=== PATIENT | female | born 1995 | race African-American/Black ===

== ENCOUNTER 2022-05-21 05:42 | Inpatient (IN) ==
--- NOTE | 2022-05-03 16:19 | History & Physical Report ---
Date of Service May 03, 2022 Assessment & Plan (1) Previous delivery affecting , antepartum: Plan: 26 yo presents for preop for planned repeat CS at 39 wks VSS +FHT on US Discussed indications, risks, benefits, alternatives with risks including infection, bleeding, injury to adjacent structures (bowel, bladder, ureters, blood vessels, nerves, baby), possible need for blood transfusion and/or life saving hysterectomy, VTE. Consent reviewed in detail w/ pt and signed after all questions answered to her satisfaction. Will plan to try to excise keloid of CS scar, aware may keloid again History of Present Illness Chief Complaint: Preop Primary Care Provider: NO PCP 26 yo at 36 3/7 wga presents for preop for planned repeat CS on 05/21 at 39 wks. +FM; denies regular ctx, LOF, VB. Had growth US today for poor maternal wt gain and was aga PNI: CSx1 Poor maternal weight gain Past [employer] Hx: G1 2020 CS in john G2 current Denies hx STIs 09/2021 neg cotest, no hx abnl Allergies Allergy/AdvReac Type Severity Reaction Status Date / Time No Known Allergies Allergy Verified 05/03/22 15:37 Patient History Medical History Tuberculosis as child Varicella vaccination Surgical History History of delivery Family History Denies family history of Ovarian cancer Prostate cancer Myocardial infarction Breast cancer Colorectal cancer Social History Smoking Status: Never smoker Second Hand Exposure: No; Hx Alcohol Use: No Hx Substance Use: No Preferred Language: Citizen Of [place] Communication Ability: Effective Visual Impairment: No Limitations Hearing Ability: Normal Cage Operator Required: No marital status: marital status details: Jesus Vincent (39) [phone] Current Living Situation: Spouse and Family Current Living Situation Comment: lives with spouse. child, no pets current occupational status: unemployed How many Children do You have: 1 Feels Safe at Home: Yes Childhood Exposure to Second-Hand Smoke: No caffeine: Yes during the past year weight has: increased > 10 lbs Physical Activity Frequency: Does not Exercise Seatbelt Use: always Sunscreen Use: No Assistive Devices: None Physical Exam Constitutional: WD/WN, vitals as above Respiratory: normal respiratory effort, lungs clear to auscultation Cardiovascular: RRR, no murmur, no edema Genitourinary: OB Exam Abdomen: + heart tones (+US) and + vertex Results & Data ([facility]) Laboratory Results OB Labs: Blood Type AB Positive 10/27/21 Antibody Screen NEGATIVE 10/27/21 Hemoglobin 10.3 g/dl (12.0-16.0) L 03/17/22 Hematocrit 31.0 % (34.1-44.9) L 03/17/22 Mean Corpuscular Volume 85.5 fL (80-100) 10/27/21 Platelet Count 317 K/uL (130-400) 10/27/21 Rubella IgG Antibody Immune (Immune) 10/27/21 Rapid Plasma Reagin Nonreactive (Nonreactive) 10/27/21 Hepatitis B Surface Antigen. NON-REACTIVE (NON-REACTIVE) 10/27/21 Hepatitis C Antibody (EIA) NON-REACTIVE (NON-REACTIVE) 10/27/21 HIV (1&2) Ag and Ab Confirmation NON-REACTIVE (NON-REACTIVE) 10/27/21 Glucose 1 Hour 50 gm Load 94 mg/dl (70-130) 03/17/22 OB Optional Labs: Chlamydia trachomatis RNA NOT DETECTED (NOT DETECTED) 10/27/21 Neisseria gonorrhoeae RNA NOT DETECTED (NOT DETECTED) 10/27/21 Diagnostic Findings 05/03 EFW 39%, post plac Coding Level of Care Code None Diagnoses Previous delivery affecting , antepartum O34.219
--- NOTE | 2022-05-18 13:20 | Anesthesiology Consultation ---
Date of Service May 18, 2022 Assessment & Plan (1) Encounter for pre-operative examination: COVID screening: Per assessment on 05/18: No known COVID-19 positive contacts or current COVID-19 related symptoms. Travel screen negative. Patient vaccinated. At surgeon discretion if preop Covid testing being done. Chart Review Chart Review: Acceptable Risk for Surgery Consults Requested none ASA ASA2 Proposed Anesthesia Anesthesia Type: Spinal Risk / Benefits Reviewed With: PT / POA / Parent / Guardian, Accepts Plan and Informed Consent Obtained History Surgery Operation Date: 05/21/22 07:30 Proposed Procedures p Section (Delivery of Baby through Abdominal Incision) - Kathia Badillo MD Height/Weight Height: 5 ft 2 in Weight: 65.045 kg Allergies Allergy/AdvReac Type Severity Reaction Status Date / Time No Known Allergies Allergy Verified 05/18/22 12:28 Medications Home Medications Medication Instructions Recorded Confirmed Last Taken prenat.vits,lee,[id number]-[id number] 1 tab PO QAM 05/18/22 05/18/22 Unknown Active Medications Generic Name Dose Route Start Last Admin Trade Name Freq PRN Reason Stop Dose Admin Cefazolin Sodium 2,000 mg/ 15 mls @ 3.75 mls/min 05/21/22 06:00 05/21/22 07:41 Syringe IV 05/21/22 14:00 3.75 mls/min PREOP SWAPNA Administration Past Medical History Medical History Group B streptococcal infection during Recently tested 05/2022 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, no issues since Vaginal bleeding during In first trimester, told it was a hematoma > bleeding resolved Exercise / Class Metabolic Activity II 4-5 Yardwork/Stairs/Walk up hill Past Family History Family History Other No family history of adverse response to anesthesia Denies family history of Ovarian cancer Prostate cancer Myocardial infarction Breast cancer Colorectal cancer Past Surgical History Surgical History History of delivery Past Anesthesia History No Hx of Anesthesia Complications and No Family Hx of Anesthesia Complications History of PONV No Hx of PONV and No Hx of Motion Sickness Social History Smoking Status: Never smoker Do You Dip or Chew Tobacco: No Hx Alcohol Use: No Hx Substance Use: No Physical Exam Vital Signs Last Vital Signs Temp 36.6 C 05/21/22 06:59 Pulse 81 05/21/22 09:05 Resp 16 05/21/22 06:23 BP 93/55 L 05/21/22 09:05 Pulse Ox 100 05/21/22 09:05 ENMT Mouth: no dentition abnormality Thyromental Distance: > or= 3.5 Finger Breadths Mallampati Class: II Neck normal visual inspection Respiratory normal respiratory effort Auscultation: lungs clear to auscultation bilaterally Cardiovascular Rate/Rhythm: regular rate and regular rhythm Psychiatric Orientation: alert Testing Laboratory Results 05/21/22 05:57 Blood Type AB Positive 05/21/22 05:57 Antibody Screen NEGATIVE 05/21/22 05:57
[2022-05-21] MEDS ORDERED: ceFAZolin 2,000 MG in SYRINGE 0 ML IV SCH (06:00)
[2022-05-21] MEDS ORDERED: LACTATED RINGER'S 1,000 ML IV ONE (06:00)
[2022-05-21] MEDS ORDERED: LACTATED RINGER'S 1,000 ML IV SCH ×2 (06:00→09:22)
[2022-05-21] MEDS ORDERED: ceFAZolin 2000MG 2,000 MG/15 ML SYR IV SCH (06:00)
[2022-05-21] MEDS ORDERED: CITRIC ACID/SODIUM CITRATE 15 ML UDC PO SCH (06:00)
[2022-05-21 06:33] LABS: Basophils # (auto) 0.01 K/uL (0-0.2); Basophils % (auto) 0.1 %; Eosinophils # (auto) 0.04 K/uL (0-0.50); Eosinophils % (auto) 0.6 %; Hematocrit (blood only) 31.5 % (34.1-44.9); Hemoglobin 10.7 g/dl (12.0-16.0); Immature Granulocytes # (auto) 0.02 K/uL (0.00-0.02); Immature Granulocytes % (auto) 0.3 %; Lymphocytes # (auto) 2.27 K/uL (1.2-3.4); Lymphocytes % (auto) 33.1 %; Mean Corpuscular Hemoglobin 29.3 pg (25.0-34.0); Mean Corpuscular Volume 86.3 fL (80.0-100.0); Mean Platelet Volume 10.2 fL (9.4-12.3); Monocytes # (auto) 0.73 K/uL (0.24-0.82); Monocytes % (auto) 10.6 %; Neutrophils # (auto) 3.79 K/uL (1.4-6.5); Neutrophils % (auto) 55.3 %; Platelet Count 245 K/uL (130-400); RDW Coefficient of Variation 12.9 % (11.5-14.5); RDW Standard Deviation 40.4 fL (36.4-46.3); Red Blood Count 3.65 M/uL (3.93-5.22); White Blood Count 6.86 K/ul (4.8-10.8)
--- NOTE | 2022-05-21 07:19 | History & Physical Bridge Note ---
Date of Service May 21, 2022 History & Physical Bridge Note I have examined the patient, reviewed the History & Physical and in the interval since the performance of the History & Physical I have noted the following changes of clinical significance: no changes noted
[2022-05-21] MEDS ORDERED: MoRPHine SULFATE PF 1 MG/ML 10 ML AMP/VIAL ONE (07:42)
[2022-05-21] MEDS ORDERED: OXYTOCIN 10 UNITS/ML 10ML VIAL ONE (08:43)
[2022-05-21] MEDS ORDERED: KETOROLAC 30 MG/ML VIAL ONE (08:43)
[2022-05-21] MEDS ORDERED: PHENYLEPHRINE 100MCG/ML 5ML SYR ONE (08:43)
[2022-05-21] MEDS ORDERED: ONDANSETRON INJ 2 MG/ML 2 ML VIAL ONE (08:43)
--- NOTE | 2022-05-21 09:07 | Operative Report ---
PG Post Operative Report Pre & Post Diagnosis Operation Date: 05/21/22 07:30 Pre-Op Diagnosis: Previous delivery affecting , antepartum, planned repeat CS at 39 wks Post-Op Diagnosis: Previous delivery affecting , antepartum, planned repeat CS at 39 wks I identified the patient and participated in the time-out.: Yes Procedure Operation Date: 05/21/22 07:30 Actual Procedures p Repeat Low Transverse Section (Delivery of Baby through Abdominal Incision) Live female child at 0819(Bilateral) - Kathia Badillo MD Surgeon Kathia Badillo MD Molecular Biologist MD Priscila Estimated Blood Loss 600 (ml) Findings Consistent with Post-Op Diagnosis Mild rectus adhesions. Normal appearing uterus with slightly thinner lower uterine segment but otherwise wnl. Bilateral fallopian tubes and ovaries wnl. Viable female with APGARs of 9 and 9 at 1 and 5 minutes, respectively. Fluids 1500cc crystalloid, 400cc clear urine by jones catheter Specimens Placenta hold, cord blood Drains Jones draining clear urine Anesthesia Type Spinal Complications none Disposition Accompanied Patient To Recovery: Yes Disposition: L&D Indications 26 yo at 39 wga presented for planned repeat . Description of Procedure The patient was taken to the operating room after consents were ensured. The patient was properly identified. Spinal anesthesia was obtained without difficulty. The patient was placed in a dorsal supine position with left lateral tilt, then prepped and draped in normal sterile fashion. Surgical time out was performed. Antibiotics were given for prophylaxis. Anesthesia was tested to ensure adequate surgical levels. Pfannenstiel skin incision was performed with the knife and carried down to the underlying fascia after excising keloid per pt request. The fascia was then nicked in the midline and extended laterally with pickups and Fitzpatrick scissors. Superior portion of the fascia was grasped with Kochers x2 and elevated off the underlying rectus muscles using blunt and sharp dissection. Inferior portion of the fascia was then grasped with Cyndi clamps x2 and also elevated off the underlying muscles with blunt dissection. Midline was identified with mild rectus adhesions. The peritoneum was then entered sharply and extended to provide adequate room for delivery of baby. A hand was inserted into the abdomen, uterus was noted to be clear of adhesions. Bladder blade was inserted, bladder flap was created in the usual fashion. A low transverse uterine incision was made in the uterus and extended bluntly in a superior to inferior fashion. Amniotomy was made with clear fluid at the time of rupture. head was grasped and elevated through the hysterotomy in an atraumatic fashion. The baby delivered in MEREDITH position, no nuchal cord. Remainder of the body delivered without incident. Nose and mouth were bulb suctioned on the surgical field. The cord was double clamped and cut, baby was handed off to awaiting pediatrics staff. Cord segment and blood were obtained. Placenta was then expressed from the uterus. The uterus was exteriorized. Several passes were made inside the uterus to remove the remaining membranes. Attention was then turned to the hysterotomy, which was then closed with a running locked suture of 0 Vicryl on a CTX needle. An imbricating layer was then performed using 0-Monocryl. There was noted to be good hemostasis. The posterior cul-de-sac was then inspected and cleaned of clot and debris. The hysterotomy was again inspected and noted to be hemostatic. The uterus was returned to the abdomen. The right and left pericolic gutters were cleaned of all clot and debris. The hysterotomy was again noted to be hemostatic. Space of Retzius was noted to be hemostatic. Benitez was applied to the hysterotomy for additional hemostasis. Rectus was inspected and no active bleeding was noted. Benitez was applied to the rectus due to having to take down the rectus adhesions. The fascia was then closed with a running suture of 0 Vicryl on a CT1 needle. Subcutaneous tissue was copiously irrigated and noted to be hemostatic. Subcutaneous tissue was re-approximated using 2-0 plain gut. The skin was then closed with a running suture of 3-0 Monocryl in a subcuticular fashion. At termination of the procedure, fundal pressure was applied and a moderate amount of lochia was expressed. Pressure dressing was applied to the patient. She tolerated the procedure well. All sponge, needle, instrument counts were correct x 2. I attest to the content of the Intraoperative Record and any orders documented therein. Any exceptions are noted below. OB Procedure Charges 47482
[2022-05-21] MEDS ORDERED: NALOXONE HCL 0.4 MG/1 ML VIAL/CARP IV PRN (09:10)
[2022-05-21] MEDS ORDERED: MoRPHine SULFATE 2 MG/ML CARP IV PRN (09:10)
[2022-05-21] MEDS ORDERED: MoRPHine SULFATE PF 1 MG/ML 10 ML AMP/VIAL INT SPINAL ONE (09:10)
[2022-05-21] MEDS ORDERED: NALOXONE HCL 0.08 MG in SYRINGE 1.8 ML IV PRN (09:10)
[2022-05-21] MEDS ORDERED: LACTATED RINGER'S 500 ML IV PRN (09:10)
[2022-05-21] MEDS ORDERED: NALBUPHINE HCL INJ 10 MG/ML AMP IV PRN (09:10)
[2022-05-21] MEDS ORDERED: diphenhydrAMINE 50 MG/ML VIAL IV PRN ×2 (09:10→09:22)
[2022-05-21] MEDS ORDERED: NALOXONE HCL 1 MG in SODIUM CHLORIDE 0.9% 1000ML 1,000 ML IV PRN (09:10)
[2022-05-21] MEDS ORDERED: PROMETHAZINE HCL 6.25 MG in SODIUM CHLORIDE 0.9% 50 ML IV PRN (09:10)
[2022-05-21] MEDS ORDERED: HYDROmorphone INJ 0.5 MG/0.5 ML SYR IV PRN (09:10)
[2022-05-21] MEDS ORDERED: ONDANSETRON INJ 2 MG/ML 2 ML VIAL IV PRN ×2 (09:10→09:22)
[2022-05-21] MEDS ORDERED: ePHEDrine sulfate 50 MG/ML AMP IV PRN (09:10)
[2022-05-21] MEDS ORDERED: MEPERIDINE HCL 25 MG/ML CARP/VIAL IV PRN (09:10)
[2022-05-21] MEDS ORDERED: SODIUM CHLORIDE 0.9% 1000ML 1,000 ML IV SCH (09:15)
[2022-05-21] MEDS ORDERED: NO NARCOTICS OR SEDATIVES SCH (09:15)
[2022-05-21] MEDS ORDERED: DC INTRASPINAL MORPHINE SCH (09:15)
[2022-05-21] MEDS ORDERED: PROMETHAZINE HCL 25 MG in SODIUM CHLORIDE 0.9% 50 ML IV PRN (09:22)
[2022-05-21] MEDS ORDERED: MAGNESIUM HYDROXIDE SUSP 30 ML UDC PO PRN (09:22)
[2022-05-21] MEDS ORDERED: HYDROCORTISONE ACETATE 25 MG SUPP PR PRN (09:22)
[2022-05-21] MEDS ORDERED: KETOROLAC 30 MG/ML VIAL IV PRN (09:22)
[2022-05-21] MEDS ORDERED: OXYTOCIN 20 UNITS in LACTATED RINGER'S 1,000 ML IV SCH (09:22)
[2022-05-21] MEDS ORDERED: SENNA 8.6 MG TAB PO PRN (09:22)
[2022-05-21] MEDS ORDERED: oxyCODONE/ACETAMINOPHEN 5mg/325mg TAB PO PRN (09:22)
[2022-05-21] MEDS ORDERED: BENZOCAINE 20% AER SPR 82.5 GM CAN EXT PRN (09:22)
[2022-05-21] MEDS ORDERED: diphenhydrAMINE Capsule 25 MG CAP PO PRN (09:22)
--- NOTE | 2022-05-21 09:59 | Anesthesiology Progress Note ---
Date of Service May 21, 2022 Anesthesia Post Procedure Vital Signs Vital Signs: Temp Pulse Resp BP Pulse Ox 05/21/22 09:55 85 100 05/21/22 09:52 80 115/74 05/21/22 09:50 79 100 05/21/22 09:45 67 100 05/21/22 09:41 68 107/66 05/21/22 09:40 65 100 05/21/22 09:35 64 100 05/21/22 09:31 67 104/61 05/21/22 09:30 67 100 05/21/22 09:25 65 100 05/21/22 09:21 61 101/61 05/21/22 09:20 69 100 05/21/22 09:15 66 100 05/21/22 09:12 68 98/57 L 05/21/22 09:10 70 100 05/21/22 09:05 81 93/55 L 100 05/21/22 07:04 77 99/56 L 05/21/22 06:59 36.6 C 05/21/22 06:23 16 Transfer of Care Handoff Completed per policy Notes Mental Status: alert / awake / arousable Nausea / Vomiting: adequately controlled Pain: adequately controlled Airway Patency, RR, SpO2: stable & adequate BP & HR: stable & adequate Hydration State: stable & adequate Neuraxial Anesthesia: was administered and sensory block is resolving Anesthetic Complications: no major complications apparent and Pt Satisfied with anesthetic care
[2022-05-21] MEDS ORDERED: DIPHTHERIA/TETANUS/PERTUSSIS 0.5 ML SYR/VIAL IM ONE (10:00)
[2022-05-21] MEDS: SIMETHICONE 80 MG CHEW PO SCH ×3 (17:00→20:07)
[2022-05-21] MEDS: KETOROLAC 30 MG/ML VIAL IV PRN (18:56)
[2022-05-21] MEDS: DOCUSATE SODIUM 100 MG CAP PO SCH (20:07)
[2022-05-22] MEDS: KETOROLAC 30 MG/ML VIAL IV PRN (03:03)
--- NOTE | 2022-05-22 07:01 | Obstetrical Progress Note ---
Date of Service <Sindhu Garcia - Last Filed: 05/22/22 07:54> May 22, 2022 Assessment & Plan <Sindhu Garcia - Last Filed: 05/22/22 07:54> (1) Status post section: Olsen is out, do a trial of OOB and ambulation and then progress diet as tolerated <Enzo Snow MD - Last Filed: 05/22/22 08:26> (1) Status post section: Subjective <Sindhu GarciaDO - Last Filed: 05/22/22 07:54> Linda is a 26 y/o female who is POD #1 following delivery at 30 weeks. She reports feeling well overall this morning. Moderate abdominal cramping & pain well managed on analgesics. Voiding. Tolerating meals overnight and able to ambulate some. Has some persistent lochia with some improvement this morning. Currently breast feeding. Review of Systems Denies fever, chills, sweats Denies shortness of breath, difficulty breathing, chest pain, palpitations, chest pressure. Denies breast pain. Denies dysuria. Denies headache or changes in vision. Physical Exam <Sindhu Garcia - Last Filed: 05/22/22 07:54> General: Alert, oriented. No acute distress. Cardiac: Regular rate and rhythm, no murmurs/rubs/gallops. Respiratory: Clear to auscultation bilaterally a/p, no wheezes/rales/rhonchi. No increased work of breathing. Symmetrical chest rise. No respiratory distress. Abdomen: Soft, nontender, nondistended. Bowel sounds present. Uterus: Uterine fundus firm, palpable 2 cm below umbilicus. Surgical scar clean and healing well. Lower Extremities: No lower extremity edema or swelling. No deep calf pain. Ngoc's negative bilaterally. Results & Data ([facility]) <Sindhu Garcia - Last Filed: 05/22/22 07:54> Vital Signs (Past 12 Hours) Vital Signs Temp Pulse Resp BP Pulse Ox O2 Del Method 05/22/22 03:00 36.7 C 80 18 102/65 100 Room Air 05/22/22 01:30 16 98 05/22/22 00:30 16 99 05/21/22 22:30 16 100 05/21/22 21:30 17 100 05/21/22 20:30 17 99 05/21/22 23:20 18 100 05/21/22 19:40 Room Air 05/21/22 19:40 36.5 C 81 17 99/64 L 100 Room Air 05/21/22 19:30 16 99 05/21/22 23:08 36.4 C L 78 18 99/61 L 99 Room Air <Enzo Snow MD - Last Filed: 05/22/22 08:26> Co-Signing Physician Notes Patient seen with resident and agree with above findings and plan. Patient doing well and will plan for routine care today Resident Activity Tracking <Sindhu Garcia DO - Last Filed: 05/22/22 07:54> Resident Involvement: Resident Care Provided Care Provided: OB Delivery (Post )
[2022-05-22 07:08] LABS: Basophils # (auto) 0.01 K/uL (0-0.2); Basophils % (auto) 0.1 %; Eosinophils # (auto) 0.06 K/uL (0-0.50); Eosinophils % (auto) 0.7 %; Hematocrit (blood only) 30.2 % (34.1-44.9); Hemoglobin 10.4 g/dl (12.0-16.0); Immature Granulocytes # (auto) 0.04 K/uL (0.00-0.02); Immature Granulocytes % (auto) 0.5 %; Lymphocytes % (auto) 19.4 %; Mean Corpuscular Hemoglobin 29.1 pg (25.0-34.0); Mean Corpuscular Hgb Conc 34.4 g/dL (32.0-36.0); Mean Corpuscular Volume 84.4 fL (80.0-100.0); Mean Platelet Volume 9.8 fL (9.4-12.3); Monocytes # (auto) 0.94 K/uL (0.24-0.82); Monocytes % (auto) 11.4 %; Neutrophils % (auto) 67.9 %; Platelet Count 243 K/uL (130-400); RDW Coefficient of Variation 12.8 % (11.5-14.5); RDW Standard Deviation 39.1 fL (36.4-46.3); Red Blood Count 3.58 M/uL (3.93-5.22); White Blood Count 8.25 K/ul (4.8-10.8)
[2022-05-22] MEDS: DOCUSATE SODIUM 100 MG CAP PO SCH ×2 (08:57→20:57)
[2022-05-22] MEDS: PRENATAL VITAMIN 1 TAB PO SCH (08:57)
[2022-05-22] MEDS: FERROUS SULFATE 325 MG TAB PO SCH (08:57)
[2022-05-22] MEDS: IBUPROFEN 600 MG TAB PO PRN ×4 (08:57→23:53)
[2022-05-22] MEDS: SIMETHICONE 80 MG CHEW PO SCH ×4 (08:58→20:57)
[2022-05-22] MEDS ORDERED: bisacodyL 5 MG TABEC PO SCH (20:00)
[2022-05-23] MEDS: IBUPROFEN 600 MG TAB PO PRN ×3 (03:38→11:47)
--- NOTE | 2022-05-23 07:38 | Obstetrical Progress Note ---
Date of Service May 23, 2022 Assessment & Plan (1) Status post section: 26 yo POD 2 from [facility], doing well -Meeting all pp milestones -AB+/rubella immune/ -f/u 6 weeks for appt, pt desires d/c home today and stable to do so Subjective Ambulation: ambulating normally Voiding: no voiding problems Passing Gas:: Yes Diet Tolerance:: regular diet Lochia:: Small Feeding Type:: breast feeding Pain well managed with medication Review of Systems Denies fevers, chills, n/v, ROMERO, CP, SOB Physical Exam Constitutional WD/WN, vitals as above no acute distress Respiratory normal respiratory effort, lungs clear to auscultation Cardiovascular RRR, no murmur, no edema Gastrointestinal (Abdomen) Inspection/Auscultation: + abdominal surgical incision (healing well, c/d/i) Percussion/Palpation: abdomen soft; abdomen nontender fundus firm at umbilicus and NT Musculoskeletal BLE symmetric, nonerythematous, nontender Results & Data ([facility]) Vital Signs (Past 12 Hours) Vital Signs Temp Pulse Resp BP Pulse Ox O2 Del Method 05/22/22 23:18 98.1 F 75 18 105/65 100 Room Air 05/22/22 20:55 Room Air 05/22/22 20:55 97.7 F 78 17 98/59 L 97 Room Air
[2022-05-23 07:41] LABS: Hematocrit (blood only) 27.8 % (34.1-44.9); Hemoglobin 9.5 g/dl (12.0-16.0)
[2022-05-23] MEDS: SIMETHICONE 80 MG CHEW PO SCH (08:05)
[2022-05-23] MEDS: FERROUS SULFATE 325 MG TAB PO SCH (08:06)
[2022-05-23] MEDS: PRENATAL VITAMIN 1 TAB PO SCH (08:06)
[2022-05-23] MEDS: DOCUSATE SODIUM 100 MG CAP PO SCH (08:06)
[2022-05-23] MEDS ORDERED: bisacodyL 10 MG SUPP PR PRN (08:56)
--- NOTE | 2022-05-25 08:25 | Discharge Summary ---
Date of Service May 25, 2022 Admission HPI Per Admitting Provider 26 yo at 36 3/7 wga presents for preop for planned repeat CS on 05/21 at 39 wks. +FM; denies regular ctx, LOF, VB. Had growth US today for poor maternal wt gain and was aga PNI: CSx1 Poor maternal weight gain Past [employer] Hx: G1 2020 CS in john G2 current Denies hx STIs 09/2021 neg cotest, no hx abnl Admission Exam (Per Admitting) Constitutional Constitutional: WD/WN, vitals as above Respiratory: normal respiratory effort, lungs clear to auscultation Cardiovascular: RRR, no murmur, no edema Genitourinary OB Exam Abdomen: + heart tones (+US) and + vertex Discharge Data Consultations 05/21/22 05:35 Consult Anesthesiology Stat Procedures Performed Operation Date: 05/21/22 07:30 Actual Procedures p Section (Delivery of Baby through Abdominal Incision) Live female child at 0819(Bilateral) - Kathia Badillo MD Hospital Course (1) Status post section: 26 yo at 39 wga presented for planned repeat , see operative report for details. Postoperative course was uncomplicated and she was discharged home on POD2 Coding Level of Care Code None Diagnoses Status post section Z98.891
== END 2022-05-23 13:54 | disposition home or self-care (01) | DRG 788 ==
LOC: 4S1 05:42 → EDSTATUS 07:30 → 4E2 15:43